=== PATIENT | male | born 1940 | race Hispanic/Latino ===

== ENCOUNTER 2025-01-07 02:00 | Emergency (ER) | payer OTHER ==
[2025-01-07] MEDS ORDERED: Metoprolol Tartrate 5 MG (5 mL) VIAL ONE (02:21)
[2025-01-07 02:27] LABS: #Basophils 0.04 10x3/uL (0.0-0.2); #Eosinophils 0.05 10x3/uL (0.0-0.5); #Monocytes 0.59 10x3/uL (0.0-1.1); #Neutrophils 8.01 10x3/uL (1.5-8.4); %Basophils 0.4 % (0.0-2.0); %Eosinophils 0.5 % (0.0-6.0); %Lymphocytes 12.2 % (18.0-47.0); %Monocytes 5.9 % (0.0-10.0); %Neutrophils 79.9 % (40.0-75.0); Hematocrit 31.4 % (38.8-50.0); Hemoglobin 10.5 g/dL (13.5-17.5); Mean Corpuscular Hemoglobin 33.2 pg (27.0-33.0); Mean Corpuscular Volume 99.4 fL (81.2-95.1); Platelet Count 228 10x3/uL (150-450); Red Blood Cell (RBC) Count 3.16 10x6/uL (4.32-5.72); White Blood Cell (WBC) Count 10.02 10x3/uL (3.5-10.5)
[2025-01-07 02:36] LABS: INR-International Normal Ratio 1.6; PTT 39.1 sec (22.0-33.0); Prothrombin Time 16.6 sec (9.5-12.1)
[2025-01-07 02:40] LABS: ALT (SGPT) 9 U/L (Less than 45); AST (SGOT) 10 U/L (11-34); Albumin 3.2 g/dL (3.1-4.5); Alkaline Phosphatase 88 U/L (40-110); Anion Gap 13 mmol/L (10-20); BUN (Urea Nitrogen) 32 mg/dL (8.4-25.7); Bilirubin, Total 0.6 mg/dL (0.3-1.2); Calc. Creatinine Clearance 0 mL/min (70-130); Calcium 8.2 mg/dL (7.8-10.44); Carbon Dioxide 19 mmol/L (23-31); Chloride 112 mmol/L (98-107); Globulin 2.6 g/dL (2.4-3.5); Glucose 108 mg/dL (83-110); Lipase 17 U/L (8-78); Magnesium 1.9 mg/dL (1.6-2.6); Potassium 5.1 mmol/L (3.5-5.1); Sodium 139 mmol/L (136-145)
[2025-01-07 02:47] LABS: Troponin I 0.010 ng/mL (< 0.028)
== END 2025-01-07 06:45 | disposition short-term general hospital (02) ==
LOC: CSHERS 02:00 → EEVIPCON 02:00 → CSHERS 06:45
DX: K62.5 Hemorrhage of anus and rectum (principal); K57.30 Diverticulosis of large intestine without perforation or abscess without bleeding; I48.91 Unspecified atrial fibrillation; R91.1 Solitary pulmonary nodule; I10 Essential (primary) hypertension; E78.00 Pure hypercholesterolemia, unspecified; K21.9 Gastro-esophageal reflux disease without esophagitis; E03.9 Hypothyroidism, unspecified; Z75.3 Unavailability and inaccessibility of health-care facilities; Z79.899 Other long term (current) drug therapy; Z79.890 Hormone replacement therapy; Z79.01 Long term (current) use of anticoagulants
CPT/HCPCS: 36415; 74177; 80053; 83690; 83735; 83880; 84484; 85025; 85610; 85730; 86850; 86900; 86901; 93005; 96374